=== PATIENT | female | born 1960 | race Caucasian/White ===

== ENCOUNTER 2016-05-09 07:40 | Day surgery (SDC) | payer OTHER ==
[~2016-05-09 07:40] MED LIST: FENTANYL 250 MCG/5 ML AMP IV PRN; FENTANYL 5 ML ONE; LACTATED RINGERS 1,000 ML IV SCH; MIDAZOLAM HCL 5 MG/5 ML VIAL IV PRN; MIDAZOLAM HCL 5 MG/5 ML VIAL ONE
[2016-05-09] MEDS ORDERED: LACTATED RINGERS 1,000 ML ONE (07:46)
[2016-05-09] MEDS ORDERED: IV START KIT ONE (07:46)
[2016-05-09] MEDS ORDERED: PROPOFOL 20 ML IV ONE (08:37)
== END 2016-05-09 09:20 | disposition home or self-care (01) ==
LOC: SDC 07:40
PROVIDERS: ATTEND Internal Medicine Gastroenterology
PROC: 0DJD8ZZ Inspection of Lower Intestinal Tract, Via Natural or Artificial Opening Endoscopic (ICD-10-PCS; principal; 2016-05-09)
DX: Z12.11 Encounter for screening for malignant neoplasm of colon (principal); K57.30 Diverticulosis of large intestine without perforation or abscess without bleeding
CPT/HCPCS: 45378; J3010; J2250; J7120